=== PATIENT | male | born 1980 | race Caucasian/White ===

== ENCOUNTER 2019-11-28 14:59 | Emergency (ER) | payer OTHER ==
[~2019-11-28] VITALS: Ht 180.3 cm; Wt 99.8 kg
[2019-11-28 16:10] VITALS: BP 106/76
== END 2019-11-28 16:11 | disposition home or self-care (01) ==
LOC: M.ERS 14:59
DX: M25.442 Effusion, left hand (principal); M79.645 Pain in left finger(s)